=== PATIENT | female | born 1990 | race Caucasian/White ===

== ENCOUNTER 2022-11-09 17:20 | Emergency (ER) | payer OTHER, SELFPAY ==
[2022-11-09 17:40] VITALS: PULSE 89; RESP 18; TEMP 36.7; O2SAT 94; BMI 32.9
--- NOTE | 2022-11-09 17:47 | ED.SKABFB ---
HPI - Skin/Abscess/Foreign Bdy General Chief complaint: Skin/Abscess/Foreign Body Stated complaint: ?Insect bite to face Time Seen by Provider: 11/09/22 17:47 Source: patient Mode of arrival: ambulatory Limitations: no limitations History of Present Illness HPI narrative: 31 y/o female presenting for evaluation of Related Data Previous Rx's Medication Instructions Recorded doxycycline monohydrate 100 mg 100 mg PO BID #14 caps 11/09/22 capsule Allergies Allergy/AdvReac Type Severity Reaction Status Date / Time egg [EGGS] Allergy Mild HIVES Unverified 07/17/20 19:02 shellfish derived Allergy Unknown HIVES Unverified 07/17/20 19:02 [SHELLFISH DERIVED] PMF Social History Social History Advance Directives: No Advance Directives Information Provided: No Physical Exam Vital Signs: Vital Signs: Last Vital Signs Temp 98.0 F 11/09/22 17:40 Pulse 89 11/09/22 17:40 Resp 18 11/09/22 17:40 Pulse Ox 94 11/09/22 17:40 O2 Del Method 11/09/22 17:40 BMI result Body Mass Index 32.9 Appearance: Alert. Oriented X3. No acute distress. HEENT: left cheek with a tender, firm 1cm swollen area with overlying yellow crusting, no fluctuance, indurated. normal inspection of the mouth, no dental trauma or palpable abscess. CVS: Normal heart rate and rhythm. Pulses normal. Respiratory: No respiratory distress. Skin: Skin warm and dry. Normal skin color. Normal skin turgor. No rashes. Extremities: normal inspection. Neuro: Oriented X 3. grossly normal. Course Course Course Narrative: 31-year-old female presenting to the ER for evaluation of left cheek insect bite with increased pain, swelling and drainage today. Exam is consistent with small palpable abscess. Was already draining earlier today. No need for incision and drainage today. Will discharge with oral doxycycline. Patient counseled on wound care. Stable for discharge home Medical Decision Making Medical Decision Making [facility] Narrative: 31-year-old female presenting to the ER for evaluation of possible bug bite to her left cheek that is draining purulent material today. Increased pain and swelling. no obvious bite but exam more consistent with small abscess. not c/w dental abscess. no ECM rash. Differential Diagnosis Differential Diagnoses: The differential diagnosis associated with the presentation includes Pimple, abscess, tick bite, insect bite, impetigo, rash Prescription Management I considered prescription management with: Pain Medication and Antibiotic Critical Care Time Critical Care Time Critical Care Time: No Discharge Plan Discharge Clinical Impression: Abscess of skin or subcutaneous tissue Patient Disposition: Home, Self-Care Instructions: Abscess (ED) Additional Instructions: Continue to use warm compresses to the area several times per day. Take the prescribed antibiotic as directed. Follow-up with your doctor. If you develop new or worsening symptoms call 911 or come back to the ER for further evaluation. Prescriptions: New doxycycline monohydrate 100 mg capsule 100 mg PO BID Qty: 14 0RF Interventions: ED Discharge Assessment Last Done: 11/09/22 17:49 Discharge Date/Time: 11/09/22 17:58
== END 2022-11-09 17:58 | disposition home or self-care (01) ==
LOC: HO.ED 17:55
PROVIDERS: Emergency Provider Emergency Medicine Emergency Medical Services
DX: L02.01 Cutaneous abscess of face (principal)
CPT/HCPCS: 99282; 99283